=== PATIENT | male | born 2005 | race Caucasian/White ===

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

== ENCOUNTER 2024-02-14 06:07 | Emergency (ER) | payer SELFPAY ==
[~2024-02-14] VITALS: Ht 170.1 cm; Wt 59.0 kg
[~2024-02-14 06:07] MED LIST changes: +ONDANSETRON4 MG SL; +PEPCID20 MG PO
[2024-02-14] MEDS ORDERED: Ondansetron Hydrochloride 4 MG TAB SL ONE (06:20)
[2024-02-14] MEDS ORDERED: Acetaminophen/Oxycodone 5 MG/325 MG TABLET PO ONE (06:20)
[2024-02-14] MEDS ORDERED: CLINDAMYCIN HCL 300 MG CAPSULE PO ONE (06:20)
[2024-02-14] MEDS ORDERED: CLINDAMYCIN HC300 MG PO (06:21)
[2024-02-15] MEDS ORDERED: Ondansetron4 MG PO (06:33)
[2024-02-15] MEDS ORDERED: AMOX-CLAV 875-1 EACH PO (06:33)
== END 2024-02-14 06:28 | disposition home or self-care (01) ==
LOC: ED 06:07
DX: K02.9 Dental caries, unspecified (principal); Z91.018 Allergy to other foods; Z79.899 Other long term (current) drug therapy

== ENCOUNTER 2024-02-15 05:58 | Emergency (ER) | payer SELFPAY ==
[~2024-02-15] VITALS: Ht 170.1 cm; Wt 59.0 kg
[2024-02-15] MEDS ORDERED: Amoxicillin/Clavulanate Pota 875 MG TAB PO ONE (06:30)
[2024-02-15] MEDS ORDERED: Ondansetron Hydrochloride 4 MG TAB SL ONE (06:30)
[2024-02-15] MEDS ORDERED: Ondansetron4 MG PO (06:33)
[2024-02-15] MEDS ORDERED: AMOX-CLAV 875-1 EACH PO (06:33)
== END 2024-02-15 06:43 | disposition home or self-care (01) ==
LOC: ED 05:58
DX: K04.7 Periapical abscess without sinus (principal); R11.2 Nausea with vomiting, unspecified; R10.9 Unspecified abdominal pain; Z91.018 Allergy to other foods; Z79.899 Other long term (current) drug therapy; Z79.2 Long term (current) use of antibiotics

== ENCOUNTER 2024-03-07 06:23 | Emergency (ER) | payer SELFPAY ==
[~2024-03-07] VITALS: Ht 170.1 cm; Wt 59.0 kg
[~2024-03-07 06:23] MED LIST changes: +AMOX-CLAV 875-1 EACH PO; +Ondansetron4 MG PO
[2024-03-07] MEDS ORDERED: AMOX-CLAV 875-1 EACH PO (06:44)
== END 2024-03-07 06:53 | disposition home or self-care (01) ==
LOC: ED 06:23
DX: K04.7 Periapical abscess without sinus (principal); K02.9 Dental caries, unspecified; K08.89 Other specified disorders of teeth and supporting structures; Z88.1 Allergy status to other antibiotic agents; Z91.018 Allergy to other foods

== ENCOUNTER 2024-05-22 12:40 | Emergency (ER) | payer SELFPAY ==
[~2024-05-22] VITALS: Ht 170.1 cm; Wt 58.1 kg
[2024-05-22] MEDS ORDERED: HYDROCODONE-AC1 EACH PO (12:57)
[2024-05-22] MEDS ORDERED: PENICILLIN-VK500 MG PO (12:57)
[2024-05-22] MEDS ORDERED: Acetaminophen/Hydrocodone HP 10/325 PO ONE (13:00)
[2024-05-22] MEDS ORDERED: PENICILLIN V POTASSIUM 500 MG TAB PO ONE (13:00)
== END 2024-05-22 13:15 | disposition home or self-care (01) ==
LOC: ED 12:40
DX: K04.7 Periapical abscess without sinus (principal); R22.0 Localized swelling, mass and lump, head; F17.290 Nicotine dependence, other tobacco product, uncomplicated; Z91.018 Allergy to other foods; Z88.1 Allergy status to other antibiotic agents

== ENCOUNTER 2025-03-04 09:30 | Emergency (ER) | payer SELFPAY ==
[~2025-03-04] VITALS: Ht 170.1 cm; Wt 59.0 kg
[~2025-03-04 09:30] MED LIST changes: +HYDROCODONE-AC1 EACH PO; +PENICILLIN-VK500 MG PO
[2025-03-04] MEDS ORDERED: TYLE3UD PO (10:20)
[2025-03-04] MEDS ORDERED: AMOXICILLIN500 M2 PO (10:20)
== END 2025-03-04 10:26 | disposition home or self-care (01) ==
LOC: ED 09:30
DX: K02.9 Dental caries, unspecified (principal); F17.200 Nicotine dependence, unspecified, uncomplicated; Z88.1 Allergy status to other antibiotic agents; Z91.018 Allergy to other foods

== ENCOUNTER 2025-04-29 14:43 | Emergency (ER) | payer SELFPAY ==
[~2025-04-29] VITALS: Ht 170.1 cm; Wt 59.0 kg
[~2025-04-29 14:43] MED LIST changes: +TYLE3UD PO
== END 2025-04-29 15:14 | disposition home or self-care (01) ==
LOC: ED 14:43
DX: K02.9 Dental caries, unspecified (principal); Z88.1 Allergy status to other antibiotic agents; Z91.018 Allergy to other foods